=== PATIENT | female | born 1970 | race Caucasian/White ===

== ENCOUNTER 2019-03-26 12:29 | Emergency (ER) | payer OTHER ==
[~2019-03-26] VITALS: Ht 177 cm; Wt 92.3 kg
[2019-03-26] MEDS ORDERED: NS IV 1000 ML 1,000 ML IV SCH (12:43)
[2019-03-26] MEDS ORDERED: RT-ALBUTEROL/IPRATROPIUM 3 ML (DUONEB) VIAL INH ONE (12:45)
--- NOTE | 2019-03-26 12:54 | ED Cough/URI ---
General Chief Complaint: Cough/Cold/Flu Symptoms Stated Complaint: COUGH;FEVER;CHEST PAIN Source: patient History of Present Illness Date Seen by Provider: Mar 26, 2019 Time Seen by Provider: 12:38 Initial Comments 48-year-old female presents with cough, chest tightness, kidney pain, epigastric pain that is bandlike. Patient reports that about a week and half ago she thought she had a urinary tract infection with some right kidney pain. Patient states that she is since also developed a little bit of a cough for the last few days with some chest tightness. She has an epigastric pain is bandlike a lot of discomfort. Patient was placed on Levaquin around 9 days ago and took 4-5 days. Patient reports that over the last couple days she feels like she's gotten quite a bit worse. Allergies and Home Medications Allergies Coded Allergies: acetaminophen (Verified Allergy, Unknown, 03/26/19) codeine (Verified Allergy, Unknown, 03/26/19) oxycodone (Verified Allergy, Unknown, 03/26/19) Home Medications Benzonatate 100 Mg Capsule, 100 MG PO TID PRN for COUGH Prescribed by: RL DUNHAM on 03/26/19 2757 Patient Home Medication List Home Medication List Reviewed: Yes Review of Systems Review of Systems Constitutional: No chills, No fever; malaise Respiratory: see HPI, cough Cardiovascular: see HPI Gastrointestinal: abdominal pain (epigastric) Genitourinary: other (right flank pain ) Skin: see HPI Psychiatric/Neurological: See HPI Past Irdxpqr-Xcjckq-Dxurkj Hx Past Med/Social Hx: Reviewed Nursing Past Med/Soc Hx Patient Social History Alcohol Use: Occasionally Uses Recreational Drug Use: No Smoking Status: Never a Smoker Recent Hopitalizations: No Physical Abuse: No Sexual Abuse: No Mistreated: No Fear: No Seasonal Allergies Seasonal Allergies: No Past Medical History Surgeries: Yes (laproscopic abdominal sx) Hysterectomy Respiratory: No Cardiac: No Neurological: No Genitourinary: No Gastrointestinal: No Musculoskeletal: No Endocrine: No HEENT: No Cancer: No Psychosocial: No Blood Disorders: No Physical Exam Vital Signs - First Documented 03/26/19 12:40 Temp 36.4 Pulse 87 Resp 20 B/P (MAP) 147/94 (111) Pulse Ox 96 O2 Delivery Room Air Capillary Refill : Height: '" Weight: lbs. oz. kg; BMI Method: General Appearance: no apparent distress Respiratory: normal breath sounds, wheezing (mild sporadic ) Cardiovascular: normal peripheral pulses, regular rate, rhythm Gastrointestinal: soft, other (epigastric ) Extremities: normal range of motion Neurologic/Psychiatric: normal mood/affect, oriented x 3 Skin: normal color, warm/dry Focused Exam Lactate Level 03/26/19 14:05: Lactic Acid Level 1.44 Lactic Acid Level Laboratory Tests Test 03/26/19 14:05 Lactic Acid Level 1.44 MMOL/L (0.50-2.00) Progress/Results/Core Measures Suspected Sepsis SIRS Temperature: Pulse: Respiratory Rate: Laboratory Tests 03/26/19 13:19: White Blood Count 6.2 Blood Pressure / Mean: 03/26/19 14:05: Lactic Acid Level 1.44 Laboratory Tests 03/26/19 13:19: Platelet Count 179 03/26/19 14:05: Creatinine 0.75, Total Bilirubin 0.6 Results/Orders Lab Results Laboratory Tests Test 03/26/19 12:37 03/26/19 13:19 03/26/19 14:05 Range/Units Urine Color YELLOW Urine Clarity CLEAR Urine pH 6.0 5-9 Urine Specific [place] 1.015 L 1.016-1.022 Urine Protein NEGATIVE NEGATIVE Urine Glucose (UA) NEGATIVE NEGATIVE Urine Ketones NEGATIVE NEGATIVE Urine Nitrite NEGATIVE NEGATIVE Urine Bilirubin NEGATIVE NEGATIVE Urine Urobilinogen 0.2 < = 1.0 MG/DL Urine Leukocyte Esterase NEGATIVE NEGATIVE Urine RBC (Auto) NEGATIVE NEGATIVE Urine RBC NONE /HPF Urine WBC 0-2 /HPF Urine Squamous Epithelial Cells RARE /HPF Urine Crystals NONE /LPF Urine Bacteria TRACE /HPF Urine Casts NONE /LPF Urine Mucus MODERATE H /LPF Urine Culture Indicated NO White Blood Count 6.2 4.3-11.0 10^3/uL Red Blood Count 4.38 4.35-5.85 10^6/uL Hemoglobin 13.3 11.5-16.0 G/DL Hematocrit 41 35-52 % Mean Corpuscular Volume 93 80-99 FL Mean Corpuscular Hemoglobin 30 25-34 PG Mean Corpuscular Hemoglobin Concent 33 32-36 G/DL Red Cell Distribution Width 12.9 10.0-14.5 % Platelet Count 179 130-400 10^3/uL Mean Platelet Volume 9.9 7.4-10.4 FL Neutrophils (%) (Auto) 74 42-75 % Lymphocytes (%) (Auto) 16 12-44 % Monocytes (%) (Auto) 9 0-12 % Eosinophils (%) (Auto) 1 0-10 % Basophils (%) (Auto) 0 0-10 % Neutrophils # (Auto) 4.6 1.8-7.8 X 10^3 Lymphocytes # (Auto) 1.0 1.0-4.0 X 10^3 Monocytes # (Auto) 0.5 0.0-1.0 X 10^3 Eosinophils # (Auto) 0.1 0.0-0.3 10^3/uL Basophils # (Auto) 0.0 0.0-0.1 10^3/uL Sodium Level 139 135-145 MMOL/L Potassium Level 3.7 3.6-5.0 MMOL/L Chloride Level 107 98-107 MMOL/L Carbon Dioxide Level 18 L 21-32 MMOL/L Anion Gap 14 5-14 MMOL/L Blood Urea Nitrogen 8 7-18 MG/DL Creatinine 0.75 0.60-1.30 MG/DL Estimat Glomerular Filtration Rate > 60 BUN/Creatinine Ratio 11 Glucose Level 91 70-105 MG/DL Lactic Acid Level 1.44 0.50-2.00 MMOL/L Calcium Level 8.9 8.5-10.1 MG/DL Corrected Calcium 8.9 8.5-10.1 MG/DL Magnesium Level 1.8 1.6-2.4 MG/DL Total Bilirubin 0.6 0.1-1.0 MG/DL Aspartate Amino Transf (AST/SGOT) 31 5-34 U/L Alanine Aminotransferase (ALT/SGPT) 52 0-55 U/L Alkaline Phosphatase 90 40-136 U/L C-Reactive Protein High Sensitivity 5.53 H 0.00-0.50 MG/DL Total Protein 6.7 6.4-8.2 GM/DL Albumin 4.0 3.2-4.5 GM/DL Lipase 10 8-78 U/L Micro Results Microbiology 03/26/19 Influenza Types A,B Antigen (RADHA) - Final, Complete My Orders Orders - RL DUNHAM DO Cbc With Automated Diff (03/26/19 12:43) Comprehensive Metabolic Panel (03/26/19 12:43) Hs C Reactive Protein (03/26/19 12:43) Lipase (03/26/19 12:43) Magnesium (03/26/19 12:43) Ua Culture If Indicated (03/26/19 12:43) Influenza A And B Antigens (03/26/19 12:43) Acute Abd Series (03/26/19 12:43) Lactic Acid Analyzer (03/26/19 12:43) Albuterol/Ipra Inhalation Soln (Duoneb I (03/26/19 12:45) Svn Small Volume Nebulizer (03/26/19 12:43) Ed Iv/Invasive Line Start (03/26/19 12:43) Ns Iv 1000 Ml (Sodium Chloride 0.9%) (03/26/19 12:43) Dexamethasone Injection (Decadron Inject (03/26/19 15:00) Ketorolac Injection (Toradol Injection) (03/26/19 15:00) Medications Given in ED Current Medications Medications Dose Ordered Sig/Stacey Route Start Time Stop Time Status Last Admin Dose Admin Albuterol/ Ipratropium 3 ml ONCE ONCE INH 03/26/19 12:45 03/26/19 12:47 DC 03/26/19 13:13 3 ML Dexamethasone Sodium Phosphate 10 mg ONCE ONCE IV 03/26/19 15:00 03/26/19 15:01 DC 03/26/19 15:06 10 MG Ketorolac Tromethamine 30 mg ONCE ONCE IVP 03/26/19 15:00 03/26/19 15:01 DC 03/26/19 15:07 30 MG Vital Signs/I&O 03/26/19 03/26/19 03/26/19 03/26/19 12:40 12:40 13:14 15:29 Temp 36.4 Pulse 87 87 Resp 20 16 B/P (MAP) 147/94 (111) 132/87 Pulse Ox 96 99 O2 Delivery Room Air Room Air Capillary Refill : Progress Note : Time: 14:55 Progress Note Reviewed x-ray, labs with patient. Discussed with patient that she has symptoms consistent with a viral pleurisy. Patient is concerned she might have a "pneumonia. Discussed with her that she just finished Levaquin recently, had a negative chest x-ray and a negative white count is very unlikely that have a pneumonia that requires antibiotics. I did offer her Naprosyn for her pleurisy which she declined. We will give her a shot of Toradol along with a shot of Dec adron IV to help with the pleuritic pain. We'll also prescribe her Tessalon Perles for the cough. Patient should follow-up with her primary care provider next week for recheck of symptoms and if not improving Departure Impression Primary Impression: Viral pleurisy Disposition: 01 HOME, SELF-CARE Condition: Stable Departure-Patient Inst. Patient Instructions: Bronchiolitis (DC), Viral Upper Respiratory Infection, Adult (DC), Pleuritic Chest Pain (DC) Scripts Benzonatate (Tessalon Perle) 100 Mg Capsule 100 MG PO TID PRN for COUGH, #20 CAP Prov: RL DUNHAM DO 03/26/19 RL DUNHAM DO Mar 26, 2019 12:54 POS
[2019-03-26 13:19] LABS: BILIRUBIN,URINE NEGATIVE (NEGATIVE); CLARITY,URINE CLEAR; COLOR,URINE YELLOW; GLUCOSE, URINE (UA) NEGATIVE (NEGATIVE); KETONES,URINE NEGATIVE (NEGATIVE); LEUKOCYTE ESTERASE ,URINE NEGATIVE (NEGATIVE); NITRITE,URINE NEGATIVE (NEGATIVE); PROTEIN,URINE NEGATIVE (NEGATIVE)
[2019-03-26 13:28] LABS: BASOPHILS % (AUTO) 0 % (0-10); EOSINOPHILS # (AUTO) 0.1 10^3/uL (0.0-0.3); EOSINOPHILS % (AUTO) 1 % (0-10); HEMATOCRIT 41 % (35-52); HEMOGLOBIN 13.3 G/DL (11.5-16.0); LYMPHOCYTES % (AUTO) 16 % (12-44); MEAN CORPUSCULAR HEMOGLOBIN 30 PG (25-34); MEAN CORPUSCULAR HGB CONC 33 G/DL (32-36); MEAN CORPUSCULAR VOLUME 93 FL (80-99); MEAN PLATELET VOLUME 9.9 FL (7.4-10.4); MONOCYTES # (AUTO) 0.5 X 10^3 (0.0-1.0); MONOCYTES % (AUTO) 9 % (0-12); NEUTROPHILS # (AUTO) 4.6 X 10^3 (1.8-7.8); NEUTROPHILS % (AUTO) 74 % (42-75); PLATELET COUNT 179 10^3/uL (130-400); RED CELL DISTRIBUTION WIDTH 12.9 % (10.0-14.5); WHITE BLOOD COUNT 6.2 10^3/uL (4.3-11.0)
[2019-03-26 13:38] LABS: BACTERIA,URINE TRACE /HPF; SQUAMOUS EPITHELIAL CELL,UR RARE /HPF; WBC,URINE 0-2 /HPF
--- NOTE | 2019-03-26 14:18 | Diagnostic Imaging Report ---
INDICATION: Respiratory distress and chest pain and right flank pain. Abdominal series performed in the frontal chest radiograph and supine and upright abdominal films. Frontal chest shows heart to be normal in size. Mediastinal silhouette is unremarkable. The lungs are clear. There is no pneumothorax or pleural fluid. There is no free intraperitoneal air. The abdominal bowel gas pattern is unremarkable. There is prominent stool throughout the colon. There is no abnormal abdominal calcification. IMPRESSION: Prominent stool throughout the colon. No suspicious calcification. No sign of free air or bowel obstruction. No acute process in the chest. Dictated by: Dictated on workstation # [id number]
[2019-03-26 14:36] LABS: ALANINE AMINOTRANSFERASE 52 U/L (0-55); ALKALINE PHOSPHATASE 90 U/L (40-136); BILIRUBIN,TOTAL 0.6 MG/DL (0.1-1.0); BUN/CREATININE RATIO 11; CALCIUM 8.9 MG/DL (8.5-10.1); CARBON DIOXIDE 18 MMOL/L (21-32); CHLORIDE 107 MMOL/L (98-107); CREATININE SERUM 0.75 MG/DL (0.60-1.30); GFR ESTIMATED > 60; GLUCOSE 91 MG/DL (70-105); LIPASE 10 U/L (8-78); MAGNESIUM 1.8 MG/DL (1.6-2.4); POTASSIUM 3.7 MMOL/L (3.6-5.0); SODIUM 139 MMOL/L (135-145); TOTAL PROTEIN 6.7 GM/DL (6.4-8.2)
[2019-03-26] MEDS ORDERED: BENZ-13 PO (14:59)
[2019-03-26] MEDS ORDERED: KETOROLAC 30 MG/ML VIAL IVP ONE (15:00)
[2019-03-26] MEDS ORDERED: DEXAMETHASONE 10 MG/ML (DECADRON) 1 ML VIAL IV ONE (15:00)
[2019-03-26 15:29] VITALS: BP 132/87
== END 2019-03-26 15:29 | disposition home or self-care (01) ==
LOC: ER 12:31
DX: R09.1 Pleurisy (principal); B97.89 Other viral agents as the cause of diseases classified elsewhere; Z88.6 Allergy status to analgesic agent; Z88.5 Allergy status to narcotic agent; Z90.710 Acquired absence of both cervix and uterus
CPT/HCPCS: 36415; 74022; 80053; 81000; 83605; 83690; 83735; 85025; 86141; 87804; 94640

== ENCOUNTER → 2020-12-06 | Outpatient (CLI) | payer OTHER ==
[~2020-12-06] VITALS: Ht 177 cm; Wt 88.6 kg
[~2020-12-06] MED LIST: BENZ-13 PO; LACTATED RINGERS 1,000 ML IV SCH
[2020-12-06 13:05] VITALS: BP 125/81
--- NOTE | 2020-12-06 13:55 | Anesthesia-Procedure Note ---
Procedures/Interventions Procedure Start/Stop/Diagnosis Date of Procedure: Dec 06, 2020 Start Time: 13:35 Referring Physician: Jeff Preprocedural Diagnosis: Post Dural Puncture Headache Brief History Recent LP. Patient presents with post dural puncture headache. Stop Time: 13:42 Blood Patch Blood Patch Patient sat to side of bed. Hips and back exposed and palpated. Noted where recent LP was preformed (L5/S1). Beta prep x 3. Fenestrated drape place. Back wiped dry. 3cc of 1% lido for skin and deep localization. 17g Tuohy needle placed with loss of resistance to approx 6 cm. See LOPES chadd 20cc of blood sterilely from right AC. Slowly injected blood. First cramping started at approx 15cc, was able to place the full 20cc's into the epidural space. Needle removed and laid supine position. AMADEO TOUSSAINT CRNA Dec 06, 2020 13:55
== END ==
LOC: SDC 13:05
PROVIDERS: ATTEND Anesthesiology
DX: G97.1 Other reaction to spinal and lumbar puncture (principal)

== ENCOUNTER 2021-09-22 22:11 | Emergency (ER) | payer OTHER ==
[~2021-09-22 22:11] MED LIST changes: -LACTATED RINGERS 1,000 ML IV SCH
[2021-09-22] MEDS ORDERED: RABIES VACCINE HUMAN DIPL CELL 1 ML/2.5 UNITS SYR IM ONE (22:30)
[2021-09-22] MEDS ORDERED: TETANUS,DIPTH,PERTUSS P/F (BOOSTRIX) 0.5 ML VIAL IM ONE (22:30)
[2021-09-22] MEDS ORDERED: AUGMENTIN 875 MG TAB (AMOXICILLIN/CLAVULANATE) PO ONE (22:30)
[2021-09-22] MEDS ORDERED: RABIES IMMUNE GLOBULIN (KEDRAB) 1,500 UNITS/10 ML IM ONE (22:30)
[2021-09-22] MEDS ORDERED: AMOX1TAB12 PO (22:50)
--- NOTE | 2021-09-22 22:50 | ED General ---
General Chief Complaint: Bite-Animal/Human/Insect Stated Complaint: BIT BY STRAY CAT ON INSIDE R FOREARM Nursing Triage Note: PT ARRIVAL TO ER WITH COMPLAINT OF BITE TO RIGHT FOREARM BY A FERRAL CAT. ONE SMALL PUNCTURE. Source of Information: Patient Exam Limitations: No Limitations History of Present Illness Date Seen by Provider: September 22, 2021 Time Seen by Provider: 22:18 Initial Comments This 51-year-old woman presents to the emergency room with complaints of cat bite on the right forearm. Her children brought home a stray cat that was acting strangely. It was also injured. When she handled the cat she was bitten causing a small puncture wound on the right forearm. Her then shot the cat because of its unusual behavior. Vaccination status of the cat was unknown. The incident happened shortly before arrival to the ER. Allergies and Home Medications Allergies Coded Allergies: acetaminophen (Verified Allergy, Unknown, 03/26/19) codeine (Verified Allergy, Unknown, 03/26/19) oxycodone (Verified Allergy, Unknown, 03/26/19) Patient Home Medication List Home Medication List Reviewed: Yes Amoxicillin/Potassium Clav (Amox Tr-K Clv 875-125 mg Tab) 875 Mg-125 Mg Tablet, 1 EACH PO BID Prescribed by: NITO DISLA on 09/22/21 2250 Benzonatate (Tessalon Perle) 100 Mg Capsule, 100 MG PO TID PRN for COUGH Prescribed by: RL DUNHAM on 03/26/19 5349 Review of Systems Review of Systems Constitutional: no symptoms reported EENTM: no symptoms reported Respiratory: no symptoms reported Cardiovascular: no symptoms reported Gastrointestinal: no symptoms reported Genitourinary: no symptoms reported Musculoskeletal: no symptoms reported Skin: see HPI Psychiatric/Neurological: No Symptoms Reported Hematologic/Lymphatic: No Symptoms Reported Past Rivoxji-Focluy-Jznwbu Hx Patient Social History Tobacco Use?: No Use of E-Cig and/or Vaping dev: No Substance use?: No Alcohol Use?: Yes Alcohol type: Wine Alcohol Frequency: Daily Pt feels they are or have been: No Immunizations Up To Date Influenza Vaccine Up-to-Date: No; Not Current Seasonal Allergies Seasonal Allergies: No Past Medical History Surgeries: Yes (laproscopic abdominal sx) Hysterectomy Respiratory: No Cardiac: No Neurological: No Genitourinary: No Gastrointestinal: No Musculoskeletal: No Endocrine: No HEENT: No Cancer: No Psychosocial: No Blood Disorders: No Physical Exam Vital Signs Vital Signs - First Documented 09/22/21 22:30 Temp 35.6 Pulse 78 Resp 16 B/P (MAP) 143/81 (101) Pulse Ox 100 O2 Delivery Room Air Capillary Refill : Less Than 3 Seconds Height, Weight, BMI Height: '" Weight: lbs. oz. kg; 29.00 BMI Method: General Appearance: No Apparent Distress, WD/WN HEENT: Normal ENT Inspection Respiratory: Lungs Clear, Normal Breath Sounds, No Accessory Muscle Use Cardiovascular: Regular Rate, Rhythm, No Edema, No Murmur Extremity: Other (3 wright on the right forearm including 1 small puncture addi) Neurologic/Psychiatric: Alert, Oriented x3, No Motor/Sensory Deficits, Normal Mood/Affect Skin: Normal Color, Warm/Dry, Other (See above) Progress/Results/Core Measures Suspected Sepsis SIRS Temperature: Pulse: 78 Respiratory Rate: 16 Blood Pressure 143 /81 Mean: 101 Results/Orders My Orders Orders - NITO SUN MD Amoxicillin/Clavulanate Tablet (Augmenti (09/22/21 22:30) Rabies Vaccine Human Dipl Cell (Rabavert (09/22/21 22:30) Rabies Immune Globulin/Pf 10ml (Kedrab 1 (09/22/21 22:30) Dipht,Pertuss(Acell),Tet Adult (Boostrix (09/22/21 22:30) Diphenhydramine Tablet (Benadryl Tablet) (09/22/21 23:30) Vital Signs/I&O 09/22/21 09/22/21 22:30 23:37 Temp 35.6 35.6 Pulse 78 73 Resp 16 16 B/P (MAP) 143/81 (101) 133/79 Pulse Ox 100 99 O2 Delivery Room Air Room Air Capillary Refill : Less Than 3 Seconds Blood Pressure Mean: 101 Progress Note : Progress Note We discussed approach to rabies prophylaxis and infection prophylaxis. Patient elected to proceed with immunoglobulin injection and rabies vaccination. Skin around the wound was cleaned with alcohol and injection of 13 mL of rabies immunoglobulin was injected subcutaneously. Rabies vaccination was given in the opposite arm along with a tetanus vaccination. Antibiotic prophylaxis was started with Augmentin. Order was given for the remaining 3 vaccination doses. Patient had erythematous swelling at the immunoglobulin injection sites. She was given a dose of Benadryl before departure. She had no other rash and denied any itching. Departure Impression Primary Impression: Cat bite Qualified Codes: W55.01XA - Bitten by cat, initial encounter Additional Impressions: Encounter for prophylactic rabies immune globin Rabies, need for prophylactic vaccination against Disposition: HOME, SELF-CARE Condition: Stable Departure-Patient Inst. Decision time for Depature: 22:47 Referrals: NILS EWING DO (PCP/Family) Primary Care Physician Patient Instructions: Rabies Immune Globulin (Human), Rabies Vaccine Add. Discharge Instructions: Return on September 25 for your next dose of rabies vaccination. Bring your outpatient order with you. You may use Tylenol and/or ibuprofen for body aches or fever associated with your injections. Monitor your wound for signs of infection such as increasing redness, puslike drainage, increasing swelling, or increasing pain. Return to care for reevaluation if you notice the symptoms. Complete your antibiotic as prescribed. Call with questions or concerns or return to care if you have any significant worsening of condition. All discharge instructions reviewed with patient and/or family. Voiced understanding. Scripts Amoxicillin/Potassium Clav (Amox Tr-K Clv 875-125 mg Tab) 875 Mg-125 Mg Tablet 1 EACH PO BID, #14 TAB Prov: NITO SUN MD 09/22/21 Copy Copies To 1: NILS EWING JOSHUA T MD September 22, 2021 22:50
[2021-09-22] MEDS ORDERED: diphenhydrAMINE 25 MG TAB (BENADRYL) PO ONE (23:30)
[2021-09-22 23:37] VITALS: BP 133/79
== END 2021-09-22 23:37 | disposition home or self-care (01) ==
LOC: EDUNIT# 22:11 → ER 22:13
DX: S51.851A Open bite of right forearm, initial encounter (principal); Z29.14 Encounter for prophylactic rabies immune globulin; Z23 Encounter for immunization; W55.01XA Bitten by cat, initial encounter
CPT/HCPCS: 90675; 90676; 90715; 99284

== ENCOUNTER 2021-09-25 13:31 | Outpatient (RCR) | payer OTHER ==
[~2021-09-25] VITALS: Ht 177.8 cm; Wt 86.4 kg
[~2021-09-25 13:31] MED LIST changes: +AMOX1TAB12 PO
[2021-09-25] MEDS ORDERED: RABIES VACCINE HUMAN DIPL CELL 1 ML/2.5 UNITS SYR INJ ONE (13:45)
[2021-09-25 14:15] VITALS: BP 129/89
[2021-09-29] MEDS ORDERED: RABIES VACCINE HUMAN DIPL CELL 1 ML/2.5 UNITS SYR INJ ONE (13:45)
[2021-09-29 15:59] VITALS: BP 150/90
[2021-10-06] MEDS ORDERED: RABIES VACCINE HUMAN DIPL CELL 1 ML/2.5 UNITS SYR INJ ONE (13:45)
[2021-10-06 16:25] VITALS: BP 140/86
== END 2021-10-16 | disposition home or self-care (01) ==
LOC: SDC 13:31
PROVIDERS: ATTEND Family Medicine
DX: Z20.3 Contact with and (suspected) exposure to rabies (principal)
CPT/HCPCS: 90675; 96372

== ENCOUNTER → 2022-04-16 | Outpatient (CLI) | payer OTHER ==
--- NOTE | 2022-04-17 14:16 | Diagnostic Imaging Report ---
INDICATION: 3D bilateral screening mammogram with CAD. CAD is utilized. The current study was also evaluated with a Computer Aided Detection (CAD) system. This study was compared to the prior exams of 03/09/2019 and 11/26/2016. At this time there are no current complaints. In the interval since the previous study bilateral breast implants have been inserted. The implants seem to be intact and there is no sign of an extracapsular rupture of either implant. The fibroglandular tissue overlying the implants is heterogeneously dense. This does limit the sensitivity of this exam. On the MLO view of the right breast overlying the pectoralis muscle there is a 7 mm nodular asymmetry. This finding cannot be identified with certainty on the craniocaudad view although it may be along the lateral most aspect of the implant. This could be represent a lymph node although it does not have an entirely smooth margin on the tomographic images. I would recommend that a compression view of this area be obtained in the MLO projection for further study. Ultrasound should also be obtained. IMPRESSION: 1. Additional mammographic views and ultrasound of the right breast would be recommended for further study. 2. There has been interval insertion of bilateral breast implants. There is no sign of an extracapsular rupture of either implant. ACR BI-RADS Category 0: Incomplete. (Needs additional imaging evaluation). Result letter will be mailed to the patient. Note: At least 10% of breast cancer is not imaged by mammography. Dictated by: Dictated on workstation # [id number]
== END ==
LOC: RAD 13:17
PROVIDERS: ATTEND Family Medicine
DX: Z12.31 Encounter for screening mammogram for malignant neoplasm of breast (principal)
CPT/HCPCS: 77063; 77067

== ENCOUNTER → 2022-05-16 | Outpatient (CLI) | payer OTHER ==
--- NOTE | 2022-05-16 17:37 | Diagnostic Imaging Report ---
INDICATION: Right breast density. Patient presents for additional views. COMPARISON: Correlation is made with screening study from 04/16/2022. EXAMINATION: Unilateral right 2D and 3D diagnostic mammography was performed with CAD. This included a repeat right MLO view as well as spot compression implant displaced ML and exaggerated CC view. The current study was also evaluated with a Computer Aided Detection (CAD) system. FINDINGS: The area of density previously noted is no longer present. No mass or malignant-appearing microcalcifications are seen. IMPRESSION: Additional views fail to demonstrate a discrete mass. Area of density just below the skin surface in the upper right breast previously is no longer present. Patient may return to routine annual screening mammography. ACR BI-RADS Category 2: Benign findings. Result letter will be mailed to the patient. Note: At least 10% of breast cancer is not imaged by mammography. Dictated by: Dictated on workstation # [id number]
== END ==
LOC: RAD 14:02
DX: R92.2 Inconclusive mammogram (principal)
CPT/HCPCS: 77065; G0279

== ENCOUNTER → 2023-03-14 | Outpatient (CLI) | payer OTHER ==
--- NOTE | 2023-03-14 16:12 | Diagnostic Imaging Report ---
INDICATION: Palpable lump right breast. Correlation is made with diagnostic mammogram earlier same day. Sonographic interrogation of the area of palpable abnormality just medial to the right breast and the chest wall was performed. There is a ovoid hypoechoic nodule just below the skin surface at the 4 o'clock location, 11 cm from the nipple. There appears to be some internal debris and findings are most suggestive of a sebaceous cyst. This measures approximately 10 mm in size. No abnormal vascularity is identified. IMPRESSION: Findings most suggestive of a sebaceous cyst at the area palpable abnormality. No other abnormality is detected. ACR BI-RADS Category 2: Benign findings. Result letter will be mailed to the patient. Note: At least 10% of breast cancer is not imaged by mammography. BI-RADS Category 2 Dictated by: Dictated on workstation # [id number]
--- NOTE | 2023-03-14 20:40 | Diagnostic Imaging Report ---
INDICATION: Palpable lump medial right breast. No prior studies are available for comparison. Unilateral right 2-D and 3-D diagnostic mammography was performed. BB marker was placed at the area of palpable abnormality along the medial aspect of the right breast. Subpectoral implants noted. There is no evidence of extracapsular rupture. The right breast is heterogeneously dense, limiting the sensitivity of mammography. No discrete mass is identified. No malignant-appearing microcalcifications are seen. There are benign calcifications present. Right axilla is unremarkable. IMPRESSION: No mammographic features suspicious for malignancy. Even so, sonographic interrogation of the area of palpable abnormality of the right breast is recommended and will be performed today. ACR BI-RADS Category 0: Incomplete. (Needs additional imaging evaluation). Result letter will be mailed to the patient. Note: At least 10% of breast cancer is not imaged by mammography. BI-RADS Category 0 Dictated by: Dictated on workstation # [id number]
== END ==
LOC: RAD 11:42
PROVIDERS: ATTEND Family Medicine
DX: N63.10 Unspecified lump in the right breast, unspecified quadrant (principal)
CPT/HCPCS: 76642; 77065; G0279